=== PATIENT | female | born 1955 | race Caucasian/White ===

== ENCOUNTER → 2018-07-27 | Outpatient (CLI) | payer MEDICARE, OTHER ==
[~2018-07-27] MED LIST: CALC-547 PO; LEVO50TA80 PO; NAPR-1043 PO
--- NOTE | 2018-07-27 14:24 | RADIOLOGY IMAGING REPORT ---
FACILITY: [facility] - [place] PATIENT NAME: Cathy Blum : 1955 MR: [id number] V: [id number] EXAM DATE: ORDERING PHYSICIAN: RENE LACEY TECHNOLOGIST: Location: [facility] [place] Patient: Cathy Blum : 1955 Visit/Account:[id number] Date of Sevice: 07/27/2018 DEXA Scan Clinical history: Hypothyroidism, postmenopausal. Comparison: None available. LUMBAR SPINE: The bone mineral density (BMD) measured from L1-L4 correlates with a Z-score 2.6 and a T-score of 1.1 which is Normal as defined by the World Health Organization. The corresponding risk of fracture in the lumbar spine is Not increased compared with a young adult reference population. HIP: Bone mineral density (BMD) measured in the right total hip region correlates with a Z-score 0.5 and a T-score of -0.6 which is Normal as defined by the World Health Organization. The corresponding risk of fracture in the hip is 1-2 times increased compared with a young adult reference population. T score left femoral neck -0.9 Bone mineral density (BMD) measured in the Femoral Neck region measures 0.919 g/cm2. Impression: 1. Lumbar spine: Normal. 2. Right Hip: Normal. 3. Femoral Neck: Bone Mineral Density is 0.919 g/cm2 The next DEXA scan of this patient should include the following sites: L1-L4 and the right hip. FRAX? WHO Fracture Risk Assessment Tool link: <http://www.shef.ac.uk/FRAX/tool.jsp?locationValue=9> PLEASE NOTE: 1) The World Health Organization defines low BMD as follows: T-score Normal > -1 Osteopenia < -1 and > -2.5 Osteoporosis < -2.5 without fractures Established osteoporosis < -2.5 with fractures 2) In general, you may wish to consider: Diagnosis Treatment Follow-up DEXA Normal BMD Prevention 2-3 years Osteopenia Prevention/therapy 1-2 years Osteoporosis Therapy Yearly 3) Fracture risk estimated from the T-score is more accurate for vertebral fractures (often spontane ous) than for hip fractures. Report Dictated By: Preethi Garcia MD at 07/27/2018 2:10 PM Report E-Signed By: Preethi Garcia MD at 07/27/2018 2:12 PM WSN:[email or web address]
--- NOTE | 2018-07-28 09:58 | RADIOLOGY IMAGING REPORT ---
FACILITY: [facility] PATIENT NAME: NOHEMY VIVEROS : [id number] MR: [id number] V: [id number] EXAM DATE: ORDERING PHYSICIAN: RENE LACEY TECHNOLOGIST: Dimple Avilez PROCEDURE: MAMMOGRAM SCREENING RIGHT UNILATERAL WITH CAD ASSISTED INTERPRETATION & 3D TOMOSYNTHESIS COMPARISON: Prior mammograms 08/26/16, 04/16/13. INDICATIONS: SCREENING FINDINGS: The breast is heterogeneously dense which can obscure small masses. On the Right MLO view posterior to mid nipple line in the posterior 1/3 there is suggestion of an ovoid nodular density that is incompletely imaged. Spot compression view is recommended for further evaluation. DIAGNOSTIC CATEGORY 0--INCOMPLETE: NEED ADDITIONAL IMAGING EVALUATION. RECOMMENDATIONS: ADDITIONAL MAMMOGRAPHIC VIEWS REQUIRED: RIGHT BREAST. IMPRESSION: BIRADS 0: Incomplete. Additional views of the Right breast recommended as described. Dictated by: Preethi Garcia M.D. on 07/27/2018 at 17:04 Transcribed by: [email or web address] on 07/28/2018 at 9:41 Approved by: Preethi Garcia M.D. on 07/28/2018 at 9:57 [facility]
== END ==
LOC: MAMO 00:18
PROVIDERS: ATTEND Physician Assistant
DX: R92.2 Inconclusive mammogram (principal); N95.9 Unspecified menopausal and perimenopausal disorder
CPT/HCPCS: 77063; 77067; 77080

== ENCOUNTER → 2018-08-14 | Outpatient (CLI) | payer MEDICARE, OTHER ==
--- NOTE | 2018-08-15 11:16 | RADIOLOGY IMAGING REPORT ---
FACILITY: [facility] PATIENT NAME: NOHEMY VIVEROS : [id number] MR: [id number] V: [id number] EXAM DATE: ORDERING PHYSICIAN: RENE LACEY TECHNOLOGIST: Dimple Avilez PROCEDURE:RIGHT DIGITAL DIAGNOSTIC MAMMOGRAM WITH CAD ASSISTED INTERPRETATION & 3D TOMOSYNTHESIS COMPARISON:Prior mammograms 07/27/18, 08/26/16, 04/16/13. INDICATIONS:FURTHER EVAL FINDINGS: The patient returned for mediolateral view of the Right breast and Spot compression views in the Right MLO projection. The ovoid nodular density seen posterior to the mid nipple line on the recent Right MLO view appeared compressible and apparently represented a summation shadow. There was no demonstration of malignant appearing mass or calcification in the Right breast. DIAGNOSTIC CATEGORY 2--BENIGN FINDING. RECOMMENDATIONS: ROUTINE MAMMOGRAM AND CLINICAL EVALUATION. IMPRESSION: BIRADS 2: Benign finding. The area of increased density posterior to mid nipple line posterior 1/3 of the Right breast on the recent MLO view was compressible and apparently represented a summation shadow. Dictated by: Preethi Garcia M.D. on 08/14/2018 at 14:49 Transcribed by: [email or web address] on 08/14/2018 at 15:07 Approved by: Preethi Garcia M.D. on 08/15/2018 at 11:15 [facility]
== END ==
LOC: MAMO 00:19
PROVIDERS: ATTEND Physician Assistant
DX: R92.8 Other abnormal and inconclusive findings on diagnostic imaging of breast (principal)
CPT/HCPCS: 77061; 77065